=== PATIENT | male | born 1960 | race Caucasian/White ===

== ENCOUNTER 2025-08-26 01:11 | Inpatient (IN) | payer MEDICARE ==
[2025-08-26] MEDS ORDERED: HYDROcodone/Acetaminophen 10/325 mg Tablet PO PRN (02:47)
[2025-08-26 02:55] VITALS: BMI 22.6
[2025-08-26] MEDS: HYDROcodone/Acetaminophen 10/325 mg Tablet PO PRN ×2 (02:58→20:14)
[2025-08-26] MEDS ORDERED: Bisacodyl 10 MG SUPP PR PRN (07:04)
[2025-08-26] MEDS ORDERED: Non-Formulary Item 1 EACH (Ferrous Sulfate [Iron] 325 MG Tablet) PO SCH (09:00)
[2025-08-26] MEDS ORDERED: Non-Formulary Item 1 EACH (Amlodipine [Norvasc] 10 MG Tab) PO SCH (09:00)
[2025-08-26] MEDS ORDERED: DEXAMETHASONE 1 MG PO SCH ×2 (09:00)
[2025-08-26] MEDS: Pantoprazole 40 MG DR.TAB PO SCH (10:09)
[2025-08-26] MEDS: Enoxaparin 40 MG (0.4 mL) SYRINGE SC SCH (10:09)
[2025-08-26] MEDS: Ferrous Sulfate 325 MG TAB PO SCH (10:10)
[2025-08-26] MEDS: Aspirin 81 mg Enteric Coated Tablet PO SCH (10:10)
[2025-08-26] MEDS: Mometasone 200 MCG/Formoterol 5 MCG 60 PUFF INHALER INH SCH (10:13)
[2025-08-26] MEDS: Dexamethasone 4 MG TAB PO SCH (10:18)
[2025-08-26] MEDS: Acetaminophen ER (8hr) 650 MG TAB PO PRN (23:32)
[2025-08-27 05:12] LABS: Hematocrit 32.4 % (42.0-52.0); Hemoglobin 10.1 g/dL (14.0-18.0); MDiff Complete? YES; Mean Corpuscular Hemoglobin 29.2 pg (27.0-31.0); Mean Corpuscular Volume 93.6 fl (78.0-98.0); Platelet Adequacy Comment Appears Increased; Platelet Count 648 10x3/uL (130-400); Red Blood Cell (RBC) Count 3.46 mill/uL (4.70-6.10); White Blood Cell (WBC) Count 32.4 10x3/uL (4.8-10.8)
[2025-08-27 05:14] LABS: ALT (SGPT) 36 U/L (Less than 45); AST (SGOT) 17 U/L (11-34); Albumin 2.9 g/dL (3.1-4.5); Alkaline Phosphatase 60 U/L (40-110); Anion Gap 16 mmol/L (10-20); BUN (Urea Nitrogen) 26 mg/dL (8.4-25.7); Bilirubin, Total 0.2 mg/dL (0.3-1.2); Calc. Creatinine Clearance 96 mL/min (70-130); Calcium 8.5 mg/dL (7.8-10.44); Carbon Dioxide 27 mmol/L (23-31); Chloride 101 mmol/L (98-107); Globulin 3.1 g/dL (2.4-3.5); Glucose 92 mg/dL (80-115); Potassium 4.7 mmol/L (3.5-5.1); Sodium 139 mmol/L (136-145)
[2025-08-27] MEDS: FLU (Fluad Triv) 25-26 (65UP)PF 45 MCG/0.5 ML Syringe IM ONE (10:01)
[2025-08-27] MEDS: HYDROcodone/Acetaminophen 10/325 mg Tablet PO PRN (15:16)
[2025-08-27 21:10] VITALS: BMI 22.6
[2025-08-28] MEDS: Dexamethasone 4 MG TAB PO SCH (09:19)
[2025-08-30] MEDS: Methocarbamol 500 MG TAB PO PRN (14:09)
[2025-08-31 04:54] LABS: #Basophils 0.1 thou/uL (0.0-0.2); #Eosinophils 0.1 thou/uL (0.0-0.7); #Lymphocytes 2.9 thou/uL (1.20-3.40); #Monocytes 2.0 thou/uL (0.11-0.59); #Neutrophils 26.2 thou/uL (1.40-6.50); %Basophils 0.4 % (0.0-1.0); %Eosinophils 0.5 % (0.0-10.0); %Lymphocytes 9.2 % (21.0-51.0); %Monocytes 6.4 % (0.0-10.0); %Neutrophils 83.6 % (42.0-75.0); Hematocrit 28.7 % (42.0-52.0); Hemoglobin 9.2 g/dL (14.0-18.0); Mean Corpuscular Hemoglobin 29.8 pg (27.0-31.0); Mean Corpuscular Volume 93.0 fl (78.0-98.0); Platelet Count 443 10x3/uL (130-400); Red Blood Cell (RBC) Count 3.08 mill/uL (4.70-6.10); White Blood Cell (WBC) Count 31.3 10x3/uL (4.8-10.8)
[2025-08-31] MEDS ORDERED: Acetaminophen 325 MG TAB PO PRN (12:05)
[2025-08-31] MEDS: HYDROcodone/Acetaminophen 10/325 mg Tablet PO PRN (16:53)
[2025-08-31] MEDS: Cephalexin 250 MG CAP PO SCH (21:43)
[2025-08-31] MEDS: Acetaminophen 500 MG TAB PO PRN (21:43)
[2025-09-03 04:46] LABS: #Basophils 0.2 thou/uL (0.0-0.2); #Eosinophils 0.1 thou/uL (0.0-0.7); #Lymphocytes 2.3 thou/uL (1.20-3.40); #Monocytes 1.4 thou/uL (0.11-0.59); #Neutrophils 18.4 thou/uL (1.40-6.50); %Basophils 1.1 % (0.0-1.0); %Eosinophils 0.6 % (0.0-10.0); %Lymphocytes 10.3 % (21.0-51.0); %Monocytes 6.2 % (0.0-10.0); %Neutrophils 81.8 % (42.0-75.0); Hematocrit 26.7 % (42.0-52.0); Hemoglobin 8.8 g/dL (14.0-18.0); Mean Corpuscular Hemoglobin 29.3 pg (27.0-31.0); Mean Corpuscular Volume 89.4 fl (78.0-98.0); Platelet Count 429 10x3/uL (130-400); Red Blood Cell (RBC) Count 2.99 mill/uL (4.70-6.10); White Blood Cell (WBC) Count 22.5 10x3/uL (4.8-10.8)
[2025-09-05 04:51] LABS: #Basophils 0.1 thou/uL (0.0-0.2); #Eosinophils 0.2 thou/uL (0.0-0.7); #Lymphocytes 2.0 thou/uL (1.20-3.40); #Monocytes 1.2 thou/uL (0.11-0.59); #Neutrophils 14.7 thou/uL (1.40-6.50); %Basophils 0.4 % (0.0-1.0); %Eosinophils 1.3 % (0.0-10.0); %Lymphocytes 11.0 % (21.0-51.0); %Monocytes 6.8 % (0.0-10.0); %Neutrophils 80.5 % (42.0-75.0); Hematocrit 26.3 % (42.0-52.0); Hemoglobin 8.5 g/dL (14.0-18.0); Mean Corpuscular Hemoglobin 28.8 pg (27.0-31.0); Mean Corpuscular Volume 89.0 fl (78.0-98.0); Platelet Count 428 10x3/uL (130-400); Red Blood Cell (RBC) Count 2.95 mill/uL (4.70-6.10); White Blood Cell (WBC) Count 18.3 10x3/uL (4.8-10.8)
[2025-09-05] MEDS: Senokot S 8.6-50 MG TAB PO PRN (08:29)
[2025-09-08] MEDS: HYDROcodone/Acetaminophen 5/325 mg Tablet PO PRN (18:14)
[2025-09-08] MEDS: Gabapentin 300 MG CAP PO SCH (20:23)
[2025-09-08] MEDS: Transdermal Patch Removal TOP SCH (20:24)
[2025-09-09] MEDS: HYDROcodone/Acetaminophen 5/325 mg Tablet PO PRN (05:54)
[2025-09-10 12:50] LABS: #Basophils 0.1 thou/uL (0.0-0.2); #Eosinophils 0.4 thou/uL (0.0-0.7); #Lymphocytes 2.8 thou/uL (1.20-3.40); #Monocytes 1.2 thou/uL (0.11-0.59); #Neutrophils 12.7 thou/uL (1.40-6.50); %Basophils 0.8 % (0.0-1.0); %Eosinophils 2.2 % (0.0-10.0); %Lymphocytes 16.4 % (21.0-51.0); %Monocytes 6.8 % (0.0-10.0); %Neutrophils 73.8 % (42.0-75.0); Hematocrit 26.7 % (42.0-52.0); Hemoglobin 8.3 g/dL (14.0-18.0); Mean Corpuscular Hemoglobin 27.4 pg (27.0-31.0); Mean Corpuscular Volume 88.1 fl (78.0-98.0); Platelet Count 1135 10x3/uL (130-400); Red Blood Cell (RBC) Count 3.04 mill/uL (4.70-6.10); White Blood Cell (WBC) Count 17.2 10x3/uL (4.8-10.8)
[2025-09-10 13:03] LABS: ALT (SGPT) 9 U/L (Less than 45); AST (SGOT) 12 U/L (11-34); Albumin 2.4 g/dL (3.1-4.5); Alkaline Phosphatase 109 U/L (40-110); Anion Gap 17 mmol/L (10-20); BUN (Urea Nitrogen) 15 mg/dL (8.4-25.7); Bilirubin, Total 0.2 mg/dL (0.3-1.2); Calc. Creatinine Clearance 77 mL/min (70-130); Calcium 9.1 mg/dL (7.8-10.44); Carbon Dioxide 25 mmol/L (23-31); Chloride 96 mmol/L (98-107); Globulin 4.6 g/dL (2.4-3.5); Glucose 104 mg/dL (80-115); Potassium 4.4 mmol/L (3.5-5.1); Sodium 134 mmol/L (136-145)
[2025-09-10 13:43] LABS: Platelet Adequacy Comment Appears Increased
[2025-09-18 05:11] LABS: Hematocrit 27.8 % (42.0-52.0); Hemoglobin 8.2 g/dL (14.0-18.0); MDiff Complete? YES; Mean Corpuscular Hemoglobin 25.7 pg (27.0-31.0); Mean Corpuscular Volume 86.7 fl (78.0-98.0); Platelet Adequacy Comment Appears Increased; Platelet Count 1505 10x3/uL (130-400); Red Blood Cell (RBC) Count 3.20 mill/uL (4.70-6.10); White Blood Cell (WBC) Count 33.0 10x3/uL (4.8-10.8)
[2025-09-18 05:18] LABS: ALT (SGPT) 8 U/L (Less than 45); AST (SGOT) 21 U/L (11-34); Albumin 2.3 g/dL (3.1-4.5); Alkaline Phosphatase 105 U/L (40-110); Anion Gap 19 mmol/L (10-20); BUN (Urea Nitrogen) 10 mg/dL (8.4-25.7); Bilirubin, Total 0.2 mg/dL (0.3-1.2); Calc. Creatinine Clearance 88 mL/min (70-130); Calcium 9.6 mg/dL (7.8-10.44); Carbon Dioxide 27 mmol/L (23-31); Chloride 92 mmol/L (98-107); Globulin 5.0 g/dL (2.4-3.5); Glucose 98 mg/dL (80-115); Potassium 4.1 mmol/L (3.5-5.1); Sodium 134 mmol/L (136-145)
[2025-09-20 04:51] VITALS: TEMP 98.1
[2025-09-20 08:28] VITALS: BP 147/73
== END 2025-09-20 15:41 | disposition home health service (06) | DRG 556 ==
LOC: BURMED 02:13 → UNDOADMIN 02:13
PROVIDERS: ADMIT Family Medicine; ATTEND Family Medicine
PROC: F07Z9ZZ Gait Training/Functional Ambulation Treatment (ICD-10-PCS; principal; 2025-08-27)
PROC: 3E0234Z Introduction of Serum, Toxoid and Vaccine into Muscle, Percutaneous Approach (ICD-10-PCS; principal; 2025-08-27)
DX: R29.898 Other symptoms and signs involving the musculoskeletal system (principal); M47.14 Other spondylosis with myelopathy, thoracic region; C34.90 Malignant neoplasm of unspecified part of unspecified bronchus or lung; Z79.899 Other long term (current) drug therapy; R26.89 Other abnormalities of gait and mobility; I10 Essential (primary) hypertension; F10.11 Alcohol abuse, in remission; F17.200 Nicotine dependence, unspecified, uncomplicated; Z23 Encounter for immunization
CPT/HCPCS: 36415; 71046; 71250; 80053; 85025; 90653; 94640; 94664; J1650; J8540